=== PATIENT | male | born 1960 | race African-American/Black ===

== ENCOUNTER 2017-06-30 05:32 | Observation (INO) ==
[2017-06-30] MEDS ORDERED: ONDANSETRON 4 MG/2 ML VIAL IV STA (06:11)
[2017-06-30] MEDS ORDERED: ASPIRIN 325 MG TABLET PO STA (06:11)
[2017-06-30] MEDS ORDERED: MORPHINE 2 MG/1 ML SYRINGE IV PRN (06:11)
[2017-06-30] MEDS ORDERED: ALUM/MAG/SIMETH/LIDO VISC 1:1 30 ML BOTTLE PO STA (06:11)
[2017-06-30] MEDS ORDERED: MORPHINE 2 MG/1 ML SYRINGE ONE (06:15)
[2017-06-30] MEDS ORDERED: ONDANSETRON 4 MG/2 ML VIAL ONE (06:15)
[2017-06-30] MEDS ORDERED: ASPIRIN 325 MG TABLET ONE (06:15)
--- NOTE | 2017-06-30 06:15 | EKG Report ---
Stationary ECG Study [facility] ER Test Date: 06/30/2017 5:37:23 AM Pat Name: DARIEL DAVIS Department: Room: Gender: M Deployment Technician: Janis : 1960 Requested by: Lucio Novoa Order Number: [id number] Reading MD: DEBORA MCGARRY Intervals [place] Rate: 58 P: 59 IA: 192 QRS: 85 QRSD: 91 T: 57 QT: 439 QTc: 436 Interpretive Statements SINUS BRADYCARDIA Electronically Signed On 06-30-17 16:46:06 CDT by DEBORA MCGARRY [email or web address]
[2017-06-30] MEDS ORDERED: ALUM/MAG/SIMETH/LIDO VISC 1:1 30 ML BOTTLE PO ONE (06:16)
--- NOTE | 2017-06-30 06:20 | Emergency Department Note ---
Darcie Vickers Emily, am scribing for, and in the presence of, Lucio Gómez MD 06:17. Dalia Vickers James D, MD, personally performed the services described in this documentation, ascribed by Louisa Sprague in my presence, and it is both accurate and complete . Arrival - Arrival Chief Complaint: Chest Pain Stated Complaint: chest pain,sweating bad,aching ED Nursing Triage Note: C/O Pain under left breast/body aches/breaking out in sweats. Onset on and off for 2 days. Denies recent illness. +pain with movement. EKG obtained at time of triage. Mode of Arrival: Ambulatory Limitations: No Limitations Source: Patient Time Seen by Provider: 06/30/17 05:59 - History of Present Illness HPI Narrative: Pt is a 56 y/o male who came to ED with c/o left sided chest pain that started 2 days ago, in waves. Pt has associated sxs of hot and cold sweats with chills , cough (non-productive), pain with exertion and sharp pain with deep inspiration, but denies any edema or N/V. Pt denies smoking, DM, or dx with kidney failure. Pt takes Levitra and sees Dr. Daniel. PMHx of prostate issues , sleep apnea with CPAP. 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 Onset (ago): day(s) Consistency: constant, intermittent Severity: moderate Severity scale (1-10): 5 Quality: aching, sharp Allergies/Adverse Reactions: Allergies Allergy/AdvReac Type Severity Reaction Status Date / Time No Known Allergies Allergy Verified 09/05/16 10:47 Home Medications: Home Medications Medication Instructions Recorded Confirmed Type Duloxetine HCl [Duloxetine] 30 mg PO BID 06/30/17 06/30/17 History Ipratropium/Albuterol Inhaler 1 puff INH QID 06/30/17 06/30/17 History [Combivent Respimat Inhaler] Omeprazole [Prilosec] 20 mg PO DAILY 06/30/17 06/30/17 History Oxycodone HCl [Oxycodone HCl ER] 40 mg PO BID PRN 06/30/17 06/30/17 History Pregabalin [Lyrica] 150 mg PO BID 06/30/17 06/30/17 History Tamsulosin [Flomax] 0.4 mg PO DAILY 06/30/17 06/30/17 History Trazodone HCl 50 mg PO DAILY 06/30/17 06/30/17 History Vardenafil HCl [Levitra] 20 mg PO DIRECTED 06/30/17 06/30/17 History hydrOXYzine HCl [Hydroxyzine HCl] 25 mg PO Q6HR 06/30/17 06/30/17 History Review of System - Review of System 12 point system: reviewed and no additional remarkable complaints except as stated - Review of System Constitutional: Present: chills, diaphoresis. Absent: fever Respiratory: Present: cough, respiratory distress (pain with deep inspiration). Absent: wheezing Cardiovascular: Present: chest pain (left sided; pain with exertion). Absent: edema, syncope Gastrointestinal: Absent: abdominal pain, nausea, vomiting Musculoskeletal: Absent: arm pain, neck pain ( ) Skin: Absent: rash Neurological: Absent: headache, confusion Medical,Surgical,& Family Hx - Medical History Cardio: History of: Hypertension Respiratory: History of: Asthma - Surgical History Surgical History: noncontributory - Family History Family History: noncontributory - Social History Smoking Status: Never smoker Frequency of Alcohol Use: None Type of Drug Use: None Marital Status: Lives With:: Spouse Functional capacity: independent ambulation Exam Vital Signs: Vital Signs Temperature 98.0 F 06/30/17 05:34 Pulse Rate 55 L 06/30/17 07:45 Respiratory Rate 17 06/30/17 07:45 Blood Pressure 103/80 06/30/17 07:45 O2 Sat by Pulse Oximetry 96 06/30/17 07:45 GENERAL: This is a well-nourished well-developed black male in no apparent distress. VITAL SIGNS: Reviewed HEENT: Head is atraumatic and normocephalic. Pupils are equal round react to light. Extraocular movements are intact. Oropharynx is benign with moist mucous membranes. NECK: Neck is soft and supple without tenderness. There are no masses. There is no lymphadenopathy. LUNGS: Lungs are clear to auscultation. Chest rises symmetrically. There is no chest wall tenderness. CV: Heart is regular rate and rhythm without murmurs rubs or gallops. ABDOMEN: Abdomen is soft, nontender to palpation. There are no abdominal abnormal masses palpated. There is no organomegaly. Bowel sounds are present and active. SKIN: Skin is warm and dry. No rash. EXTREMITIES: Patient has full range of motion without tenderness. There is no pedal edema. NEUROLOGIC: Awake alert and oriented 4. Cranial nerves II through XII are grossly intact. Motor is 5 over 5 in all extremities bilaterally. Deep tendon reflexes are 2+ and bilaterally equal. Course - Consultations Consultation #1: Discussed with hospitalist. Patient has chest pain. Will ask them to admit patient to their service for chest pain rule out. Time: 08:37 Results - Labs CBC & BMP: 06/30/17 06:19 06/30/17 06:19 Lab Results: I have reviewed the patients labs Labs: Laboratory Tests 06/30/17 06/30/17 06/30/17 06:19 06:19 06:19 WBC 4.1 RBC 5.67 H Hgb 16.2 Hct 48.3 MCV 85.2 L Plt Count 192 MPV 9.1 L Neut % (Auto) 36.2 L INR 1.0 PT Patient/Control Mix 10.9 Circ Anticoag PTT 30.9 Sodium 139 Potassium 3.8 Chloride 106 Carbon Dioxide 27 GFR Calculation 81 Glucose 93 Total Bilirubin 1.40 H AST 19 Globulin 4.1 H Albumin/Globulin Ratio 0.9 L Laboratory Tests 06/30/17 06:19 Troponin I < 0.015 Laboratory Tests 06/30/17 06:19 Total Counted 100 Segmented Neutrophils 41 L Lymphocytes 45 Monocytes 9 Eosinophils 5 Platelet Estimate Normal Laboratory Tests 06/30/17 07:57 Urine Color Yellow Urine Appearance Clear Urine pH 6.0 Ur Specific [place] 1.005 Urine Blood Negative Urine Nitrate Negative Urine Urobilinogen 0.2 Urine RBC 2 Urine WBC 1 - EKG EKG results: interpreted by [facility] EKG shows: bradycardia (58) - Impressions EKG: Sinus bradycardia with a rate of 58, normal ST-T waves, normal axis. - Diagnostic Findings Procedure: Chest x-ray: image reviewed by me, report reviewed by me (No acute cardiopulmonary pathology identified.), CT - chest: report reviewed by me (No evidence of PE. Increased fat deposition including fatty infiltration of liver and minimal subpleural fat deposition. No pleural effusion. Minimal diffuse groundglass opacities which could be related to mild pneumonitis or other minimal diffuse interstitial lung disease.) Disposition Clinical Impression: Left sided chest pain Case discussed with: patient Condition: Stable
[2017-06-30 06:44] LABS: Basophils % 0.5 % (0.0-0.8); Eosinophils # 0.2 10*3/uL (0.0-0.87); Eosinophils % 5.2 % (0.00-10.9); Hematocrit 48.3 VOL% (42.0-52.0); Hemoglobin 16.2 GM/DL (14.0-18.0); Immature Granulocytes % 0.2 %; Immature Granulocytes Absolute 0.01 #; Lymphocytes # 1.9 10*3/uL (1.4-4.0); Lymphocytes % 47.8 % (21.2-54.2); Mean Corpuscular HGB Conc 33.5 GM/DL (32-36); Mean Corpuscular Hemoglobin 29 PG (27-34); Mean Corpuscular Volume 85.2 FL (87-102); Mean Platelet Volume 9.1 FL (9.6-12.0); Monocytes # 0.4 10*3/uL (0.11-0.8); Monocytes % 10.1 % (1.7-12.7); Neutrophils # 1.5 10*3/uL (1.4-7.4); Neutrophils % 36.2 % (38.7-73.9); Platelet Count 192 T/CUMM (130-400); Red Blood Count 5.67 MC/CUMM (3.8-5.5); White Blood Count 4.1 T/CUMM (4-12)
--- NOTE | 2017-06-30 06:57 | XRay Report ---
XR chest 2V Date: 06/30/2017 6:11 AM History: Chest pain Comparison: 09/05/2016 Technique: PA and lateral chest Findings: The heart is normal in size. The lungs and mediastinum are stable in appearance. Contrast in the urinary tract from recent CT. Degenerative changes are noted with prior anterior cervical fusion. Impression: No acute cardiopulmonary pathology identified. PROCEDURE INTERPRETED AT [facility] DEPARTMENT OF RADIOLOGY Final Report Signed by: Dr. Cat Shen
[2017-06-30 06:58] LABS: PT Patient Result 10.9 SECS; Partial Thromboplastin Time 30.9 SECS (0-40)
[2017-06-30 06:59] LABS: Albumin 3.8 G/DL (3.4-5.0); Bilirubin,Total 1.4 MG/DL (0.2-1.0); Osmolality,Calculated 277.5 MOS/KG (273-304); Potassium 3.8 MMOL/L (3.5-5.1); Total Protein 7.9 G/DL (6.4-8.3)
--- NOTE | 2017-06-30 07:02 | CT Report ---
Exam: CT chest with contrast, PE study Date: 06/30/2017 Comparison: None Reason: Pleuritic chest pain Technique: Axial images of the chest were obtained after administration of 80 cc of IV Omnipaque 350 intravenous contrast. Coronal reformatted images were also acquired. The study was performed per pulmonary embolism protocol. Total DLP: 256.80. Findings: There is no evidence of pulmonary embolism through the segmental pulmonary arteries. The heart is borderline in size with no pericardial effusion. No evidence of aortic dissection or chest lymphadenopathy. Fatty infiltration of the liver with minimal distention of the gallbladder. Minimal subpleural fat deposition with no pleural effusion. Minimal diffuse groundglass opacities with minimal dependent findings. Minimal degenerative changes are noted. Impression: No evidence of pulmonary embolism. Increased fat deposition including fatty infiltration of liver and minimal subpleural fat deposition. No pleural effusion. Minimal diffuse groundglass opacities which could be related to mild pneumonitis or other minimal diffuse interstitial lung disease. This CT exam was performed using one or more the following dose reduction techniques: Automated exposure control, adjustment of the MA and/or KV according to patient size, or use of iterative reconstruction technique. PROCEDURE INTERPRETED AT [facility] DEPARTMENT OF RADIOLOGY Final Report Signed by: Dr. Cat Shen
[2017-06-30 07:23] LABS: Eosinophils 5 % (0-10); Lymphocytes 45 % (20-55); Platelet Estimate Normal; Segmented Neutrophils 41 % (50-85); Total Cells Counted 100
[2017-06-30 08:15] LABS: Apearance,Urine Clear (Clear); Bilirubin,Urine Negative (Negative); Blood, Urine NEGATIVE (Negative); Glucose,Urine (UA) Negative (Negative); Ketones,Urine Negative (Negative); Nitrite,Urine Negative (Negative); Protein,Urine Negative; RBC,Urine 2 /HPF (0-4); Urine Color Yellow (Yellow); Urine Specific Gravity 1.005 (1.001-1.035); WBC,Urine 1 /HPF (0-6)
[2017-06-30 08:20] LABS: Urine Urobilinogen 0.2 EU/DL (0.2-1.0)
[2017-06-30 08:25] LABS: Barbiturates Screen,Urine Negative (Negative); Benzodiazepines Screen,Urine Negative (Negative); Cannabinoid Screen,Urine Negative (Negative); Opiate Screen,Urine Positive (Negative); Phencyclidine Screen,Urine Negative (Negative)
--- NOTE | 2017-06-30 10:28 | Hospitalist History & Physical ---
Assessment and Plan - Time spent with patient Time spent with patient: Greater than 30 minutes (1) Left sided chest pain Status: Acute Assessment and plan: This appears to be more pleuritic in nature. It is not reproducible to palpation. Nonradiating. Pain with inspiration. Admit for observation. Chest CT does suggest some mild interstitial lung disease or pneumonitis. Continue O2 per nasal cannula. Continue breathing treatment and steroids as needed. Current Visit: Yes (2) Obstructive sleep apnea Status: Acute Assessment and plan: Continue CPAP use. Current Visit: Yes (3) GERD (gastroesophageal reflux disease) Status: Acute Assessment and plan: Continue home medication Current Visit: Yes (4) Post traumatic stress disorder (PTSD) Status: Acute Assessment and plan: Continue home medication Current Visit: Yes History of Present Illness Chief complaint: chest pain History of present illness: Mr. Schilling is a 56 year old male with a past medical history significant for hyperlipidemia, SIM, osteoarthritis, PTSD, insomnia, cervical plate placement on chronic opioids, GERD and fibromyalgia who presents to the ED today with a 3 day history of pleuritic chest pain. On exam, the patient seemed less concerned about his chest pain and more focused on his toothache. Upon further questioning , the patient notes that he did have some intermittent left-sided, nonradiating chest pain that worsens with inspiration; however, it is not reproducible to palpation. He reports a 2 week history of subjective fever with associated hot and cold flashes, hot sweats and cold intolerance. He denies a recent history of illness or infection, though he does report a work history aboard [employer] with exposure to asbestos. He is a and recently retired as an mechanical product design engineer. He denies headache, shortness of breath, palpitations, N/V/D, edema. CXR is unremarkable. Chest CT shows no evidence of pulmonary embolism however there are minimal diffuse ground glass opacities suggestive of mild pneumonitis or other minimal diffuse interstitial lung disease. Lab work shows: WBC 4.1, hemoglobin 16.2, hematocrit 40.3, platelets 192, sodium 139, potassium 3.8, BUN 14, creatinine 1.30, serum glucose 93. This case has been discussed with Dr. Gómez, ER physician, and Dr. Hager, admitting physician, and the patient will be admitted to the hospital medicine service for further evaluation and treatment. CODE STATUS was discussed with patient; he is a FULL CODE. Home medications have been reviewed and reconciled. Home Medications Medication Instructions Recorded Confirmed Type Duloxetine HCl [Duloxetine] 30 mg PO BID 06/30/17 06/30/17 History Ipratropium/Albuterol Inhaler 1 puff INH QID 06/30/17 06/30/17 History [Combivent Respimat Inhaler] Omeprazole [Prilosec] 20 mg PO DAILY 06/30/17 06/30/17 History Oxycodone HCl [Oxycodone HCl ER] 40 mg PO BID PRN 06/30/17 06/30/17 History Pregabalin [Lyrica] 150 mg PO BID 06/30/17 06/30/17 History Tamsulosin [Flomax] 0.4 mg PO DAILY 06/30/17 06/30/17 History Trazodone HCl 50 mg PO DAILY 06/30/17 06/30/17 History Vardenafil HCl [Levitra] 20 mg PO DIRECTED 06/30/17 06/30/17 History hydrOXYzine HCl [Hydroxyzine HCl] 25 mg PO Q6HR 06/30/17 06/30/17 History Allergies Allergy/AdvReac Type Severity Reaction Status Date / Time No Known Allergies Allergy Verified 09/05/16 10:47 Medical,Surgical,& Family Hx - Medical History Cardio: History of: Hypertension Psychological: History of: Anxiety Disorders (PTSD) Rheumatology: History of;: Fibromyalgia Respiratory: History of: Asthma, Obstructive Sleep Apnea Gastrointestinal: History of: GERD Musculoskeletal: History of: Back/Neck Problems (cervical plate) - Surgical History Additional Surgical History: Bilateral Achilles tendon repair - Family History Family History: Denies;: Family Heart Disease, Family Hypertension, Family Stroke - Social History Smoking Status: Never smoker Frequency of Alcohol Use: Rarely Type of Drug Use: None Marital Status: Lives With:: Spouse Functional capacity: independent ambulation 12 point system: reviewed and no additional remarkable complaints except as stated Exam - Constitutional Vitals: Period Temp Pulse Resp BP Sys/Soler Pulse Ox Last 24 Hr 98 F-98.0 F 53-89 16-18 103-120/79-88 96-97 Exam: General appearance: normal weight, no acute distress - Head Head exam: Present: normocephalic, atraumatic - Eye Eye exam: Present: EOMI. Absent: conjunctival injection, nystagmus Pupils: Present: TRUNG, normal accommodation - ENT ENT exam: Present: normal exam, normal external ear exam - Neck Neck exam: Present: normal inspection. Absent: lymphadenopathy, tenderness, thyromegaly - Respiratory Respiratory exam: Present: clear to auscultation bilaterally. Absent: rales, rhonchi, wheezes - Cardiovascular Cardiovascular exam: Present: sinus bradycardia. Absent: carotid bruit, gallop , rubs - GI/Abdominal GI/Abdominal exam: Present: normal bowel sounds. Absent: ascites, distended, mass - Extremities Exam Extremities exam: Present: normal inspection, normal capillary refill. Absent: edema - Back Exam Back exam: Absent: CVA tenderness (L), CVA tenderness (R) - Neurological Exam Neurological exam: Present: alert, oriented X3, CN II-XII intact, reflexes normal - Psychiatric Psychiatric exam: Present: normal affect, normal mood - Skin Skin exam: Present: normal color, warm, dry Results - Labs CBC & BMP: 06/30/17 06:19 06/30/17 06:19 Lab Results: I have reviewed the past 24 hour labs - EKG EKG results: sinus rhythm EKG shows: bradycardia - Diagnostic Findings Procedure: Chest x-ray: image reviewed by me, report reviewed by me ( Unremarkable), CT - chest: image reviewed by me, report reviewed by me (Mild pneumonitis or mild interstitial lung disease)
[2017-06-30] MEDS ORDERED: ACETAMINOPHEN 325 MG TABLET PO PRN (11:12)
[2017-06-30] MEDS ORDERED: ONDANSETRON 4 MG/2 ML VIAL IV PRN (11:12)
[2017-06-30] MEDS ORDERED: oxyCODONE ER 40 MG TABLET PO PRN (11:29)
[2017-06-30] MEDS: hydrOXYzine HCL 25 MG TABLET PO SCH ×2 (11:55→20:58)
[2017-06-30] MEDS: ALBUTEROL/IPRATROPIUM 3 ML NEB RESP TX SCH ×2 (14:33→19:51)
[2017-06-30] MEDS: oxyCODONE/ACETAMINOPHEN 5-325 MG TABLET PO PRN (15:00)
[2017-06-30] MEDS: AMOXICILLIN 500 MG CAPSULE PO SCH (20:58)
[2017-06-30] MEDS: PREGABALIN 75 MG CAPSULE PO SCH (20:58)
[2017-06-30] MEDS: DULoxetine 30 MG CAPSULE PO SCH (20:58)
[2017-06-30] MEDS: oxyCODONE ER 40 MG TABLET PO SCH (20:58)
[2017-06-30] MEDS ORDERED: traZODone 50 MG TABLET PO SCH ×2 (23:35→23:45)
[2017-07-01] MEDS: hydrOXYzine HCL 25 MG TABLET PO SCH ×3 (03:23→14:48)
[2017-07-01 06:15] LABS: Basophils % 0.5 % (0.0-0.8); Eosinophils # 0.2 10*3/uL (0.0-0.87); Eosinophils % 3.9 % (0.00-10.9); Hematocrit 44.8 VOL% (42.0-52.0); Hemoglobin 14.7 GM/DL (14.0-18.0); Immature Granulocytes % 0.2 %; Immature Granulocytes Absolute 0.01 #; Lymphocytes # 2.1 10*3/uL (1.4-4.0); Lymphocytes % 48.7 % (21.2-54.2); Mean Corpuscular HGB Conc 32.8 GM/DL (32-36); Mean Corpuscular Hemoglobin 29 PG (27-34); Mean Corpuscular Volume 87.2 FL (87-102); Mean Platelet Volume 9.2 FL (9.6-12.0); Monocytes # 0.4 10*3/uL (0.11-0.8); Monocytes % 8.8 % (1.7-12.7); Neutrophils # 1.6 10*3/uL (1.4-7.4); Neutrophils % 37.9 % (38.7-73.9); Platelet Count 182 T/CUMM (130-400); Red Blood Count 5.14 MC/CUMM (3.8-5.5); Red Cell Distribution Width 14.1 % (9.3-17.3); White Blood Count 4.3 T/CUMM (4-12)
[2017-07-01 06:49] LABS: Calcium 8.6 MG/DL (8.5-10.1); Osmolality,Calculated 275.7 MOS/KG (273-304); Potassium 3.8 MMOL/L (3.5-5.1)
[2017-07-01 07:00] LABS: Free T4 (Free Thyroxine) 0.92 NG/DL (0.76-1.46); Thyroid Stimulating Hormone 2.32 uIU/ml (0.358-3.74)
[2017-07-01] MEDS: ALBUTEROL/IPRATROPIUM 3 ML NEB RESP TX SCH ×3 (07:16→15:01)
[2017-07-01 07:23] LABS: Eosinophils 8 % (0-10); Hypochromasia 1+; Lymphocytes 44 % (20-55); Ovalocytes Slight; Platelet Estimate Normal; Segmented Neutrophils 42 % (50-85); Total Cells Counted 100
[2017-07-01] MEDS: AMOXICILLIN 500 MG CAPSULE PO SCH (08:18)
[2017-07-01] MEDS: PREGABALIN 75 MG CAPSULE PO SCH (08:18)
[2017-07-01] MEDS: DULoxetine 30 MG CAPSULE PO SCH (08:18)
[2017-07-01] MEDS: oxyCODONE ER 40 MG TABLET PO SCH (08:18)
[2017-07-01] MEDS ORDERED: TAMSULOSIN 0.4 MG CAPSULE PO SCH (09:00)
[2017-07-01] MEDS ORDERED: traZODone 50 MG TABLET PO SCH (09:00)
[2017-07-01 11:31] VITALS: BP 95/56
[2017-07-01] MEDS ORDERED: SODIUM CHLORIDE 0.9% 1,000 ML IV ONE (11:43)
[2017-07-01] MEDS ORDERED: SODIUM CHLORIDE 0.9% 1,000 ML IV SCH (12:00)
[2017-07-01 14:05] LABS: Calcium 8.1 MG/DL (8.5-10.1); Magnesium 2.2 MG/DL (1.8-2.4); Osmolality,Calculated 281.3 MOS/KG (273-304); Potassium 3.3 MMOL/L (3.5-5.1)
[2017-07-01] MEDS: oxyCODONE/ACETAMINOPHEN 5-325 MG TABLET PO PRN (14:50)
[2017-07-01] MEDS ORDERED: POTASSIUM CHLORIDE 20 MEQ TABLET PO ONE (15:04)
--- NOTE | 2017-07-01 15:25 | Discharge Summary ---
Hospital Course - Hospital Course Hospital Course: Mr. Schilling is a 56-year-old male with the history of dyslipidemia. Obstructive sleep apnea osteoarthritis, PTSD, insomnia and, GERD fibromyalgia and chronic pain syndrome. He was admitted yesterday with the left-sided chest pain which was pleuritic nature when by the time I saw he complained more of left-sided neck pain which persists on movement he does have a chronic neck pain and has been taking and narcotics and analgesics and other medication. He also complained of toothache especially right lower jaw but has multiple teeth with the cavities. He denies any fever but say he was sweating and feel like hot and cold flashes. His chest x-ray and CT scan chest did not reveal any acute abnormalities there was no evidence of pulmonary embolism. His blood pressure was within normal limit. Labs revealed WBC count 4.1 normal hemoglobin hematocrit and platelet counts he is a creatinine was 1.3 EKG was sinus rhythm with rate 58 serial troponin negative. He was started on amoxicillin for his tooth infection this morning patient feels better he had no more flashes. But he does have revealed that he get anxious and when ever some come somebody comes at the he feels anxious. He has history of PTSD and multiple medication in addition to narcotics. I asked him to discuss his medication with the prior provider follow with the his psychiatrist at the [place] where he usually goes. He has been otherwise okay without any acute subjective symptom. His blood pressure was little low active 95/56. I explained that these is possible because of his multiple medication including narcotics and he has to address with his providers. His creatinine was also 1.5 which was touch higher than his creatinine 4 at admission. I gave him bolus IV fluid and the check the creatinine again it was stable at 1.5. I suspect he does have some CKD and have asked him to stop any [id number] NSAIDs especially with his borderline blood pressure. He has to stay hydrated and the follow-up with his provider to adjust medications and psychiatric is to address his PTSD symptoms. I have also asked him to get a repeat lab to follow renal functions when he see his primary provider. In addition to these he has to follow-up with the dentist as he has multiple cavities including the one hurting right premolar lower jaw Diagnosis - Discharge Diagnosis (1) Left sided chest pain Status: Acute (2) Obstructive sleep apnea Status: Chronic (3) Post traumatic stress disorder (PTSD) Status: Chronic Discharge Plan - Discharge Data Disposition: Disch To Home/Self Care Condition at Discharge: Stable Discharge Diet: advance to your usual diet Activity: resume usual activities as tolerated - Discharge Medications New Amoxicillin Cap/Tab 500 mg PO Q12HR #14 capsule Continue Ipratropium/Albuterol Inhaler [Combivent Respimat Inhaler] 1 puff INH QID Trazodone HCl 50 mg PO BEDTIME Duloxetine HCl [Duloxetine] 30 mg PO BID Oxycodone HCl [Oxycodone HCl ER] 40 mg PO BID PRN PRN Reason: Pain hydrOXYzine HCl [Hydroxyzine HCl] 25 mg PO QID Tamsulosin [Flomax] 0.4 mg PO DAILY Pregabalin [Lyrica] 150 mg PO BID Vardenafil HCl [Levitra] 20 mg PO DIRECTED Omeprazole [Prilosec] 20 mg PO DAILY Oxycodone HCl/Acetaminophen [Percocet 10-325 mg Tablet] 1 each PO BID - Follow Up or Referral - Forms/Instructions Exam - Constitutional Vitals: Period Temp Pulse Resp BP Sys/Soler Pulse Ox Last 24 Hr 97.1 F-98.2 F 63-81 16-20 95-128/56-81 90-99 General appearance: no acute distress - Respiratory Respiratory exam: Present: clear to auscultation bilaterally. Absent: accessory muscle use, rales, rhonchi - Cardiovascular Cardiovascular exam: Present: regular rate and rhythm. Absent: tachycardia - GI/Abdominal GI/Abdominal exam: Present: normal bowel sounds, soft. Absent: distended, tenderness - Extremities Exam Extremities exam: Present: normal inspection. Absent: edema - Neurological Exam Neurological exam: Present: alert, oriented X3 - Psychiatric Psychiatric exam: Present: normal affect Discharge Results Labs on day of discharge: Labs from last 24 hours 07/01/17 07/01/17 07/01/17 13:19 05:15 05:15 WBC RBC Hgb Hct MCV MCH MCHC RDW Plt Count MPV Neut % (Auto) Lymph % (Auto) Barron % (Auto) Eos % (Auto) Baso % (Auto) Neut # (Auto) Lymph # (Auto) Barron # (Auto) Eos # (Auto) Baso # (Auto) Total Counted Immature Gran % Nucleated RBC % Immature Gran # Segmented Neutrophils Lymphocytes Monocytes Eosinophils Nucleated RBCs # Platelet Estimate Immature Plt Fraction Hypochromasia Ovalocytes Sodium 141 138 Potassium 3.3 L 3.8 Chloride 106 104 Carbon Dioxide 28 28 Anion Gap 10.3 9.8 BUN 14 16 Creatinine 1.50 H 1.50 H GFR Calculation 67 67 BUN/Creatinine Ratio 9.00 10.00 Glucose 106 99 Calculated Osmolality 281.3 275.7 Calcium 8.1 L 8.6 Magnesium 2.2 Free T4 0.92 TSH 3rd Generation 2.320 07/01/17 05:15 WBC 4.3 RBC 5.14 Hgb 14.7 Hct 44.8 MCV 87.2 MCH 29 MCHC 32.8 RDW 14.1 Plt Count 182 MPV 9.2 L Neut % (Auto) 37.9 L Lymph % (Auto) 48.7 Barron % (Auto) 8.8 Eos % (Auto) 3.9 Baso % (Auto) 0.5 Neut # (Auto) 1.6 Lymph # (Auto) 2.1 Barron # (Auto) 0.4 Eos # (Auto) 0.2 Baso # (Auto) 0.0 Total Counted 100 Immature Gran % 0.2 Nucleated RBC % 0.0 Immature Gran # 0.01 Segmented Neutrophils 42 L Lymphocytes 44 Monocytes 6 Eosinophils 8 Nucleated RBCs # 0.00 Platelet Estimate Normal Immature Plt Fraction 0.0 Hypochromasia 1+ Ovalocytes Slight Sodium Potassium Chloride Carbon Dioxide Anion Gap BUN Creatinine GFR Calculation BUN/Creatinine Ratio Glucose Calculated Osmolality Calcium Magnesium Free T4 TSH 3rd Generation DS: Provider Date of admission: 06/30/17 08:57 Primary care physician: . No PCP Attending physician on admission: Yesenia Park MD Discharging clinician: Boris Hager MD
== END 2017-07-01 15:52 | disposition home or self-care (01) ==
LOC: N.EDINP 05:32 → N.ED 05:32 → SUATTDRO 08:57 → N.2E 11:27
PROVIDERS: ADMIT Internal Medicine; ATTEND Internal Medicine